=== PATIENT | female | born 1995 | race Caucasian/White ===

== ENCOUNTER 2020-02-23 06:44 | Inpatient (IN) | payer BC ==
[2020-02-23] MEDS ORDERED: Tranexamic Acid 1,000 MG in Sodium Chloride 0.9% 100 ML IV PRN (08:44)
[2020-02-23] MEDS ORDERED: Methylergonovine 0.2 MG/1 ML Amp IM PRN (08:44)
[2020-02-23] MEDS ORDERED: Sodium Chloride 0.9% 2.5 ML Syringe FLUSH PRN (08:44)
[2020-02-23] MEDS ORDERED: Nalbuphine 10 MG/1 ML Vial IVPUSH PRN (08:44)
[2020-02-23] MEDS ORDERED: Carboprost Tromethamine 250 MCG/1 ML Amp IM PRN (08:44)
[2020-02-23] MEDS ORDERED: Water For Irrigation,Sterile 1,000 ML Container IRR PRN (08:44)
[2020-02-23] MEDS ORDERED: Misoprostol 200 MCG Tab PO PRN (08:44)
[2020-02-23] MEDS ORDERED: Sodium Chloride 0.9% 10 ML Syringe FLUSH PRN (08:44)
[2020-02-23] MEDS ORDERED: Butorphanol 1 MG/ML SDV IVPUSH PRN (08:44)
[2020-02-23] MEDS ORDERED: Lidocaine 1% 50 ML MDV INJECT PRN (08:44)
[2020-02-23] MEDS ORDERED: Sodium Chloride 0.9% 10 ML SDV IV PRN (08:44)
[2020-02-23] MEDS ORDERED: Oxytocin/0.9 % Sodium Chloride 30 UNIT/500 ML BAG IV SCH (08:45)
[2020-02-23] MEDS: Lactated Ringers 1,000 ML IV SCH ×3 (09:08→12:00)
[2020-02-23] MEDS ORDERED: fentaNYL 100 MCG/2 ML SDV ONE ×2 (09:21→11:36)
[2020-02-23] MEDS ORDERED: Ropivacaine HCl/PF 100 ML ONE (09:21)
[2020-02-23] MEDS ORDERED: Oxytocin/0.9 % Sodium Chloride 30 UNIT/500 ML BAG ONE (09:26)
--- NOTE | 2020-02-23 09:55 | PCM.PREANE ---
Preanesthetic Assessment - Anesthesia/Transfusion/Family Hx Anesthesia History: Prior Anesthesia Without Reaction Family History of Anesthesia Reaction: No - Physical Assessment NPO Status Date: 02/23/20 NPO Status Time: 06:00 Height: 1.78 m Weight: 145.15 kg ASA Class: 2 - Lab Values: Laboratory Last Values WBC 14.36 K/uL (4.0-11.0) H 02/23/20 09:00 RBC 4.25 M/uL (4.30-5.90) L 02/23/20 09:00 Hgb 13.5 g/dL (12.0-16.0) 02/23/20 09:00 Hct 40.4 % (36.0-46.0) 02/23/20 09:00 MCV 95.1 fL (80.0-98.0) 02/23/20 09:00 MCH 31.8 pg (27.0-32.0) 02/23/20 09:00 MCHC 33.4 g/dL (31.0-37.0) 02/23/20 09:00 RDW Std Deviation 47.2 fl (28.0-62.0) 02/23/20 09:00 RDW Coeff of Altagracia 14 % (11.0-15.0) 02/23/20 09:00 Plt Count 245 K/uL (150-400) 02/23/20 09:00 MPV 10.10 fL (7.40-12.00) 02/23/20 09:00 Nucleated RBC % 0.0 /100WBC 02/23/20 09:00 Nucleated RBCs # 0 K/uL 02/23/20 09:00 - Allergies Allergies/Adverse Reactions: Allergies Allergy/AdvReac Type Severity Reaction Status Date / Time Sulfa (Sulfonamide Allergy Stomach Verified 02/23/20 07:25 Antibiotics) Upset - Acknowledgements Anesthesia Type Planned: Epidural Pt an Appropriate Candidate for the Planned Anesthesia: Yes Alternatives and Risks of Anesthesia Discussed w Pt/Guardian: Yes Pt/Guardian Understands and Agrees with Anesthesia Plan: Yes PreAnesthesia Questionnaire - HOME MEDS Home Medications: Home Meds Acetaminophen [Tylenol Extra Strength] 500 mg PO Q4H PRN #1 tab 11/27/14 [Rx] Ibuprofen [Motrin] 400 mg PO Q4H PRN #1 tablet 11/27/14 [Rx] Lanolin [Lansinoh HPA] 40 gm TOP ASDIRECTED PRN #1 crm 11/27/14 [Rx] - CURRENT (IN HOUSE) MEDS Current Meds: Current Medications Butorphanol Tartrate (Stadol) 1 mg IVPUSH Q1H PRN PRN Reason: Pain Carboprost Tromethamine (Hemabate Ds) 250 mcg IM ASDIRECTED PRN PRN Reason: Post Hemorrhage Lactated Ringer's (Ringers, Lactated) 1,000 mls @ 150 mls/hr IV ASDIRECTED [facility] Last Admin: 02/23/20 09:51 Dose: 999 mls/hr Oxytocin/Sodium Chloride (Oxytocin 30 Unit/500 Ml-Ns) 30 unit in 500 mls @ 500 mls/hr IV TITRATE [facility] Tranexamic Acid 1,000 mg/ (Sodium Chloride) 110 mls @ 660 mls/hr IV ONETIME PRN PRN Reason: Bleeding Lidocaine HCl (Xylocaine 1%) 50 ml INJECT ONETIME PRN PRN Reason: Laceration repair Methylergonovine Maleate (Methergine) 0.2 mg IM ASDIRECTED PRN PRN Reason: Post Hemorrhage Misoprostol (Cytotec) 200 mcg PO ONETIME PRN PRN Reason: Post Hemorrhage Nalbuphine HCl (Nubain) 10 mg IVPUSH Q1H PRN PRN Reason: Pain (severe 7-10) Sodium Chloride (Saline Flush) 10 ml FLUSH ASDIRECTED PRN PRN Reason: Keep Vein Open Sodium Chloride (Saline Flush) 2.5 ml FLUSH ASDIRECTED PRN PRN Reason: Keep Vein Open Sodium Chloride (Normal Saline) 10 ml IV ASDIRECTED PRN PRN Reason: IV Use Sterile Water (Sterile Water For Irrigation) 1,000 ml IRR ASDIRECTED PRN PRN Reason: delivery Discontinued Medications Fentanyl (Sublimaze) Confirm Administered Dose 100 mcg .ROUTE .STK-MED ONE Stop: 02/23/20 09:22 Ropivacaine (Naropin 0.2%) Confirm Administered Dose 100 mls @ as directed .ROUTE .STK-MED ONE Stop: 02/23/20 09:22 Oxytocin/Sodium Chloride (Oxytocin 30 Unit/500 Ml-Ns) Confirm Administered Dose 30 unit in 500 mls @ as directed .ROUTE .STK-MED ONE Stop: 02/23/20 09:27
--- NOTE | 2020-02-23 09:58 | PCM.PRNOTE ---
- Free Text/Narrative Note: Anes NOte Patietn requests epidural for L&D. Sittin position. Level L3-L4 midline approach. Sterile technique. Chloraprep scrub to lumbar area. Sterile fenestrated drape applied. Epidural space achieved second attempt using TAYO technique. TAYO at 8 cm. Cath threaded 6 cm with ease. Cath secured at skin at 14 cm. using sterile clear adhesive dressing. Test 0940 3 cc 1.5% lido with epi negative. 0944 Load 10 cc 0.2% ropiv with 1 mcg cc fentanyl in slow divided doses. 0940 Pump started wtih 90 cc same solution. Rate is 8 cc hr with 6 cc q 20 min prn bolus. Janki well. Time with patient [id number] Zach Chatman CRNA
[2020-02-23] MEDS ORDERED: Lidocaine 1% 50 ML MDV ONE ×2 (10:26→14:08)
[2020-02-23] MEDS ORDERED: Bupivacaine 0.5% 10 ML SDV ONE ×2 (11:36→11:38)
--- NOTE | 2020-02-23 12:03 | PCM.PRNOTE ---
- Free Text/Narrative Note: 1030 Anes Note Patient reports incomplete analgesia with existing epidural. Epidural cath removed easily and complete. A new epidural was placed under sterile technique at Level L2-L3 midline approach. TAYO at 6 cm. Cath threaded 5 cm with ease, and secured at 12 cm at skin using sterile clear adhesive dressing. 1035 Test 3 cc 1.5% lido wtih ep negative. 1038 load 10 cc 0.2% ropiv with 100 mcg fentanyl added to bolus was injected in slow divided doses. Patient reports excellent improvement in discomfor. Pump restarted at prior rate. Zach Chatman CRNA
[2020-02-23] MEDS ORDERED: Lanolin 100% Cream 7 GM Tube TOP PRN (16:58)
[2020-02-23] MEDS ORDERED: Ibuprofen 400 MG Tab PO PRN (16:58)
[2020-02-23] MEDS ORDERED: Benzocaine/Menthol 20%-0.5% Spray 78 GM Cannister TOP PRN (16:58)
[2020-02-23] MEDS ORDERED: Docusate Sodium 100 MG Cap PO PRN (16:58)
[2020-02-23] MEDS ORDERED: Bisacodyl 10 MG Supp RECTAL PRN (16:58)
[2020-02-23] MEDS ORDERED: Witch Hazel Medicated Pads 40/Jar TOP PRN (16:58)
[2020-02-23] MEDS ORDERED: oxyCODONE 5 MG Tab PO PRN (16:58)
[2020-02-23] MEDS ORDERED: Acetaminophen 500 MG Tab PO PRN ×2 (16:58)
--- NOTE | 2020-02-23 17:10 | PCM.DEL ---
L & D Note - General Info Date of Service: 02/23/20 - Delivery Note Labor: Spontaneous, Augmented by ARM Delivery Outcome: Livebirth Infant Delivery Method: Spontaneous Vaginal Delivery-Single Presentation: Left Occiput Anterior (ROZINA) Nuchal Cord: None Anesthesia Type: Epidural Local Anesthetic Volume: 1cc Episiotomy Type: None Laceration: 1st Degree Suture type: Other (monocryl) Suture size: 2-0 Placenta: Spontaneous Cord: 3 Vessels Estimated Blood Loss: 200 Resuscitation Needed: No Score 1 min: 8 Score 5 min: 9 Delivery Comments (Free Text/Narrative):: Live Female delivered at 1543 , 8/9 weight 4610g Cord blood and cord tissue obtained and given to parent to be shipped to [facility] - General Info Date of Service: 02/23/20 - Patient Data Weight - Most Recent: 145.15 kg Lab Results Last 24 Hours: Laboratory Results - last 24 hr 02/23/20 02/23/20 Range/Units 09:00 09:57 WBC 14.36 H (4.0-11.0) K/uL RBC 4.25 L (4.30-5.90) M/uL Hgb 13.5 (12.0-16.0) g/dL Hct 40.4 (36.0-46.0) % MCV 95.1 (80.0-98.0) fL MCH 31.8 (27.0-32.0) pg MCHC 33.4 (31.0-37.0) g/dL RDW Std Deviation 47.2 (28.0-62.0) fl RDW Coeff of Altagracia 14 (11.0-15.0) % Plt Count 245 (150-400) K/uL MPV 10.10 (7.40-12.00) fL Nucleated RBC % 0.0 /100WBC Nucleated RBCs # 0 K/uL Blood Type A POSITIVE Antibody Screen NEGATIVE Med Orders - Current: Current Medications Acetaminophen (Tylenol Extra Strength) 500 mg PO Q4H PRN PRN Reason: Pain Acetaminophen (Tylenol Extra Strength) 1,000 mg PO Q4H PRN PRN Reason: Pain Benzocaine/Menthol (Dermoplast Pain Relief 20%-0.5% [place]) 78 gm TOP ASDIRECTED PRN PRN Reason: Perineal Comfort Measure Bisacodyl (Dulcolax) 10 mg RECTAL ONETIME PRN PRN Reason: Constipation Butorphanol Tartrate (Stadol) 1 mg IVPUSH Q1H PRN PRN Reason: Pain Last Admin: 02/23/20 12:02 Dose: 1 mg Carboprost Tromethamine (Hemabate Ds) 250 mcg IM ASDIRECTED PRN PRN Reason: Post Hemorrhage Docusate Sodium (Colace) 100 mg PO BID PRN PRN Reason: Constipation Emollient Ointment (Lansinoh Hpa) 0 gm TOP ASDIRECTED PRN PRN Reason: Sore Nipples Lactated Ringer's (Ringers, Lactated) 1,000 mls @ 150 mls/hr IV ASDIRECTED [facility] Last Admin: 02/23/20 12:00 Dose: 150 mls/hr Oxytocin/Sodium Chloride (Oxytocin 30 Unit/500 Ml-Ns) 30 unit in 500 mls @ 500 mls/hr IV TITRATE [facility] Last Admin: 02/23/20 15:46 Dose: 999 mls/hr Tranexamic Acid 1,000 mg/ (Sodium Chloride) 110 mls @ 660 mls/hr IV ONETIME PRN PRN Reason: Bleeding Ibuprofen (Motrin) 400 mg PO Q4H PRN PRN Reason: Pain Ibuprofen (Motrin) 800 mg PO Q6H PRN PRN Reason: Pain Lidocaine HCl (Xylocaine 1%) 50 ml INJECT ONETIME PRN PRN Reason: Laceration repair Methylergonovine Maleate (Methergine) 0.2 mg IM ASDIRECTED PRN PRN Reason: Post Hemorrhage Misoprostol (Cytotec) 200 mcg PO ONETIME PRN PRN Reason: Post Hemorrhage Nalbuphine HCl (Nubain) 10 mg IVPUSH Q1H PRN PRN Reason: Pain (severe 7-10) Oxycodone HCl (Oxycodone) 5 mg PO Q2H PRN PRN Reason: Pain Sodium Chloride (Saline Flush) 10 ml FLUSH ASDIRECTED PRN PRN Reason: Keep Vein Open Sodium Chloride (Saline Flush) 2.5 ml FLUSH ASDIRECTED PRN PRN Reason: Keep Vein Open Sodium Chloride (Normal Saline) 10 ml IV ASDIRECTED PRN PRN Reason: IV Use Sterile Water (Sterile Water For Irrigation) 1,000 ml IRR ASDIRECTED PRN PRN Reason: delivery Mejia Rankin (Tucks) 1 pad TOP ASDIRECTED PRN PRN Reason: comfort care Discontinued Medications Bupivacaine HCl (Sensorcaine-Mpf 0.5%) Confirm Administered Dose 10 ml .ROUTE .STK-MED ONE Stop: 02/23/20 11:37 Bupivacaine HCl (Sensorcaine-Mpf 0.5%) Confirm Administered Dose 10 ml .ROUTE .STK-MED ONE Stop: 02/23/20 11:39 Fentanyl (Sublimaze) Confirm Administered Dose 100 mcg .ROUTE .STK-MED ONE Stop: 02/23/20 09:22 Fentanyl (Sublimaze) Confirm Administered Dose 100 mcg .ROUTE .STK-MED ONE Stop: 02/23/20 11:37 Ropivacaine (Naropin 0.2%) Confirm Administered Dose 100 mls @ as directed .ROUTE .STK-MED ONE Stop: 02/23/20 09:22 Oxytocin/Sodium Chloride (Oxytocin 30 Unit/500 Ml-Ns) Confirm Administered Dose 30 unit in 500 mls @ as directed .ROUTE .STK-MED ONE Stop: 02/23/20 09:27 Lidocaine HCl (Xylocaine 1%) Confirm Administered Dose 50 ml .ROUTE .STK-MED ONE Stop: 02/23/20 10:27 Lidocaine HCl (Xylocaine 1%) Confirm Administered Dose 50 ml .ROUTE .STK-MED ONE Stop: 02/23/20 14:09 - Problem List & Annotations (1) Vaginal delivery SNOMED Code(s): 599909046 Code(s): O80 - ENCOUNTER FOR FULL-TERM UNCOMPLICATED DELIVERY Status: Acute Current Visit: No - Problem List Review Problem List Initiated/Reviewed/Updated: Yes - My Orders Last 24 Hours: My Active Orders 02/23/20 08:35 Admission Status [Patient Status] [ADT] Routine 02/23/20 08:44 Butorphanol [Stadol] 1 mg IVPUSH Q1H PRN Carboprost Tromethamine [Hemabate DS] 250 mcg IM ASDIRECTED PRN Lidocaine 1% [Xylocaine 1%] 50 ml INJECT ONETIME PRN Methylergonovine [Methergine] 0.2 mg IM ASDIRECTED PRN Nalbuphine [Nubain] 10 mg IVPUSH Q1H PRN Sodium Chloride 0.9% [Normal Saline] 10 ml IV ASDIRECTED PRN Sodium Chloride 0.9% [Saline Flush] 10 ml FLUSH ASDIRECTED PRN Sodium Chloride 0.9% [Saline Flush] 2.5 ml FLUSH ASDIRECTED PRN Tranexamic Acid [Cyklokapron] 1,000 mg Sodium Chloride 0.9% [Normal Saline] 100 ml IV ONETIME Water For Irrigation,Sterile [Sterile Water for Irrigation] 1,000 ml IRR ASDIRECTED PRN miSOPROStoL [Cytotec] 200 mcg PO ONETIME PRN 02/23/20 08:45 Heart Tones [RC] CONTINUOUS Vaginal Exam [RC] PRN Lactated Ringers [Ringers, Lactated] 1,000 ml IV ASDIRECTED Oxytocin/0.9 % Sodium Chloride [Oxytocin 30 Unit/500 ML-NS] 30 unit in 500 ml IV TITRATE Peripheral IV Insertion Adult [OM.PC] Routine 02/23/20 09:00 RPR (SYPHILIS SERO) W/ RFLX [REF] Routine 02/23/20 16:58 Acetaminophen [Tylenol Extra Strength] 1,000 mg PO Q4H PRN Acetaminophen [Tylenol Extra Strength] 500 mg PO Q4H PRN Benzocaine/Menthol [Dermoplast Pain Relief 20%-0.5% [place]] 78 gm TOP ASDIRECTED PRN Docusate Sodium [Colace] 100 mg PO BID PRN Ibuprofen [Motrin] 400 mg PO Q4H PRN Ibuprofen [Motrin] 800 mg PO Q6H PRN Lanolin [Lansinoh HPA] See Dose Instructions TOP ASDIRECTED PRN bisacodyL [Dulcolax] 10 mg RECTAL ONETIME PRN oxyCODONE 5 mg PO Q2H PRN witch Precious [Tucks] 1 pad TOP ASDIRECTED PRN 02/23/20 16:59 Patient Status [ADT] Routine May Shower [RC] ASDIRECTED Up ad Bnig [RC] ASDIRECTED Vital Signs [RC] PER UNIT ROUTINE Assess Lochia [WOMSER] Per Unit Routine Assess Uterine Involution [WOMSER] Per Unit Routine Peripheral IV Discontinue [OM.PC] Routine 02/24/20 05:11 HEMOGLOBIN/HEMATOCRIT,HH [HEME] Timed
--- NOTE | 2020-02-23 20:10 | OR ---
SURGEON: SAVANA VAZQUEZ DATE OF PROCEDURE: 02/23/2020 PREOPERATIVE DIAGNOSES: A 25-year-old, G2, P 1-0-0-1, at 40 weeks 4 days, admitted in early labor, GBS negative, history of herpes simplex virus 2. POSTOPERATIVE DIAGNOSES: A 25-year-old, G2, P 1-0-0-1, at 40 weeks 4 days, admitted in early labor, GBS negative, history of herpes simplex virus 2. PROCEDURE: Normal some spontaneous vaginal delivery, repair of right first-degree vaginal laceration. ESTIMATED BLOOD LOSS: 200. ANESTHESIA: Epidural. NOTES AND FINDINGS: Live female delivered at 1543. score of 8 and 9. Weight is 4610 g. The patient desired cord blood and cord tissue collection, which was done. BRIEF HISTORY: The patient is a 25-year-old, G2, P1, low-risk patient who came in in early labor. She was about 3 to 4 cm dilated. She made change to 6. At this point, she was ruptured. When she ruptured, there was blood-tinged fluid, which was noted, and she was requesting epidural. She got the epidural placed about three times because of an inadequate pain control. The final epidural was helpful with the pain. After the patient had been ruptured, in 4 hours she was noted to be complete, and she was encouraged to push. DESCRIPTION OF PROCEDURE: With good pushing effort, she delivered the head subsequently by the anterior and posterior shoulder.The body of the baby was delivered. Infant was placed on maternal abdomen. The cord was clamped close to the umbilicus of the baby and the cord blood gases were obtained. The cord blood was obtained as per instruction from the [facility] cord blood kit and the placenta was then delivered via controlled cord traction. Perineum was inspected, noted to have a first-degree laceration which was repaired and uterine massage was done and hemostasis was noted. About 8 cm of cord tissue was then also obtained and sent for collection. The patient tolerated the procedure well. All instrument and pad counts were correct x2. KEYANA / NAMRATA /[id number]
[2020-02-23] MEDS: Ibuprofen 800 MG Tab PO PRN (21:58)
[2020-02-24] MEDS: Ibuprofen 800 MG Tab PO PRN ×3 (04:23→18:48)
--- NOTE | 2020-02-24 08:03 | PCM48HPAN ---
Post Anesthesia Note - EVALUATION WITHIN 48HRS OF ANESTHETIC Vital Signs in Normal Range: Yes Patient Participated in Evaluation: Yes Respiratory Function Stable: Yes Airway Patent: Yes Cardiovascular Function Stable: Yes Hydration Status Stable: Yes Pain Control Satisfactory: Yes Nausea and Vomiting Control Satisfactory: Yes Mental Status Recovered: Yes Vital Signs: Last Vital Signs Temp 36.5 C 02/24/20 04:15 Pulse 72 02/24/20 03:55 Resp 18 02/24/20 03:55 BP 135/63 02/24/20 03:55 Pulse Ox 96 02/24/20 03:55
--- NOTE | 2020-02-24 11:03 | PCM.PNPP ---
- General Info Date of Service: 02/24/20 Subjective Update: 25 yo P2 s/p , denies any complains today ambulating , , Normal lochia Functional Status: Reports: Pain Controlled, Tolerating Diet, Ambulating, Urinating, New Symptoms - Review of Systems General: Reports: No Symptoms HEENT: Reports: No Symptoms Pulmonary: Reports: No Symptoms Cardiovascular: Reports: No Symptoms Gastrointestinal: Reports: No Symptoms Genitourinary: Reports: No Symptoms Musculoskeletal: Reports: No Symptoms Skin: Reports: No Symptoms Neurological: Reports: No Symptoms Psychiatric: Reports: No Symptoms - General Info Date of Service: 02/24/20 - Patient Data Vital Signs - Most Recent: Last Vital Signs Temp 36.6 C 02/24/20 08:00 Pulse 91 02/24/20 08:00 Resp 16 02/24/20 08:00 BP 145/67 H 02/24/20 08:00 Pulse Ox 96 02/24/20 08:00 Weight - Most Recent: 145.15 kg Lab Results - Last 24 Hours: Laboratory Results - last 24 hr 02/24/20 Range/Units 05:00 Hgb 11.7 L (12.0-16.0) g/dL Hct 35.9 L (36.0-46.0) % Med Orders - Current: Current Medications Acetaminophen (Tylenol Extra Strength) 500 mg PO Q4H PRN PRN Reason: Pain Acetaminophen (Tylenol Extra Strength) 1,000 mg PO Q4H PRN PRN Reason: Pain Benzocaine/Menthol (Dermoplast Pain Relief 20%-0.5% [place]) 78 gm TOP ASDIRECTED PRN PRN Reason: Perineal Comfort Measure Bisacodyl (Dulcolax) 10 mg RECTAL ONETIME PRN PRN Reason: Constipation Butorphanol Tartrate (Stadol) 1 mg IVPUSH Q1H PRN PRN Reason: Pain Last Admin: 02/23/20 12:02 Dose: 1 mg Carboprost Tromethamine (Hemabate Ds) 250 mcg IM ASDIRECTED PRN PRN Reason: Post Hemorrhage Docusate Sodium (Colace) 100 mg PO BID PRN PRN Reason: Constipation Emollient Ointment (Lansinoh Hpa) 0 gm TOP ASDIRECTED PRN PRN Reason: Sore Nipples Lactated Ringer's (Ringers, Lactated) 1,000 mls @ 150 mls/hr IV ASDIRECTED [facility] Last Admin: 02/23/20 12:00 Dose: 150 mls/hr Oxytocin/Sodium Chloride (Oxytocin 30 Unit/500 Ml-Ns) 30 unit in 500 mls @ 500 mls/hr IV TITRATE [facility] Last Admin: 02/23/20 15:46 Dose: 999 mls/hr Tranexamic Acid 1,000 mg/ (Sodium Chloride) 110 mls @ 660 mls/hr IV ONETIME PRN PRN Reason: Bleeding Ibuprofen (Motrin) 400 mg PO Q4H PRN PRN Reason: Pain Ibuprofen (Motrin) 800 mg PO Q6H PRN PRN Reason: Pain Last Admin: 02/24/20 10:46 Dose: 800 mg Lidocaine HCl (Xylocaine 1%) 50 ml INJECT ONETIME PRN PRN Reason: Laceration repair Methylergonovine Maleate (Methergine) 0.2 mg IM ASDIRECTED PRN PRN Reason: Post Hemorrhage Misoprostol (Cytotec) 200 mcg PO ONETIME PRN PRN Reason: Post Hemorrhage Nalbuphine HCl (Nubain) 10 mg IVPUSH Q1H PRN PRN Reason: Pain (severe 7-10) Oxycodone HCl (Oxycodone) 5 mg PO Q2H PRN PRN Reason: Pain Sodium Chloride (Saline Flush) 10 ml FLUSH ASDIRECTED PRN PRN Reason: Keep Vein Open Sodium Chloride (Saline Flush) 2.5 ml FLUSH ASDIRECTED PRN PRN Reason: Keep Vein Open Sodium Chloride (Normal Saline) 10 ml IV ASDIRECTED PRN PRN Reason: IV Use Sterile Water (Sterile Water For Irrigation) 1,000 ml IRR ASDIRECTED PRN PRN Reason: delivery Witch Massiel (Tucks) 1 pad TOP ASDIRECTED PRN PRN Reason: comfort care Discontinued Medications Bupivacaine HCl (Sensorcaine-Mpf 0.5%) Confirm Administered Dose 10 ml .ROUTE .STK-MED ONE Stop: 02/23/20 11:37 Bupivacaine HCl (Sensorcaine-Mpf 0.5%) Confirm Administered Dose 10 ml .ROUTE .STK-MED ONE Stop: 02/23/20 11:39 Fentanyl (Sublimaze) Confirm Administered Dose 100 mcg .ROUTE .STK-MED ONE Stop: 02/23/20 09:22 Fentanyl (Sublimaze) Confirm Administered Dose 100 mcg .ROUTE .STK-MED ONE Stop: 02/23/20 11:37 Ropivacaine (Naropin 0.2%) Confirm Administered Dose 100 mls @ as directed .ROUTE .STK-MED ONE Stop: 02/23/20 09:22 Oxytocin/Sodium Chloride (Oxytocin 30 Unit/500 Ml-Ns) Confirm Administered Dose 30 unit in 500 mls @ as directed .ROUTE .STK-MED ONE Stop: 02/23/20 09:27 Lidocaine HCl (Xylocaine 1%) Confirm Administered Dose 50 ml .ROUTE .STK-MED ONE Stop: 02/23/20 10:27 Lidocaine HCl (Xylocaine 1%) Confirm Administered Dose 50 ml .ROUTE .STK-MED ONE Stop: 02/23/20 14:09 - Infant Interaction Support Person: Significant Other - Recovery Exam Fundal Tone: Firm Fundal Level: 1 Fingerbreadths Below Umbilicus Fundal Placement: Midline Lochia Amount: Scant, Small Lochia Color: Rubra/Red Perineum Description: Intact, Minimal Bruising/Swelling Bladder Status: Voiding Urinary Elimination: Voided - Exam General: Alert HEENT: Pupils Equal Neck: Supple Lungs: Clear to Auscultation, Normal Respiratory Effort Cardiovascular: Regular Rate, Regular Rhythm Extremities: Normal Inspection Neurological: No New Focal Deficit Psy/Mental Status: Alert - Problem List & Annotations (1) Vaginal delivery SNOMED Code(s): 381556708 Code(s): O80 - ENCOUNTER FOR FULL-TERM UNCOMPLICATED DELIVERY Status: Acute Current Visit: No - Problem List Review Problem List Initiated/Reviewed/Updated: Yes - My Orders Last 24 Hours: My Active Orders 02/23/20 16:58 Acetaminophen [Tylenol Extra Strength] 1,000 mg PO Q4H PRN Acetaminophen [Tylenol Extra Strength] 500 mg PO Q4H PRN Benzocaine/Menthol [Dermoplast Pain Relief 20%-0.5% [place]] 78 gm TOP ASDIRECTED PRN Docusate Sodium [Colace] 100 mg PO BID PRN Ibuprofen [Motrin] 400 mg PO Q4H PRN Ibuprofen [Motrin] 800 mg PO Q6H PRN Lanolin [Lansinoh HPA] See Dose Instructions TOP ASDIRECTED PRN bisacodyL [Dulcolax] 10 mg RECTAL ONETIME PRN oxyCODONE 5 mg PO Q2H PRN jewel Lang [Tucks] 1 pad TOP ASDIRECTED PRN 02/23/20 16:59 Patient Status [ADT] Routine May Shower [RC] ASDIRECTED Up ad Bing [RC] ASDIRECTED Assess Lochia [WOMSER] Per Unit Routine Assess Uterine Involution [WOMSER] Per Unit Routine Peripheral IV Discontinue [OM.PC] Routine 02/23/20 Dinner Regular Diet [DIET] - Assessment Assessment:: 25yo P2 s/p , , normal lochia - Plan Plan:: Doing well s/p Discharge home today
[2020-02-24 20:40] VITALS: BP 117/62; PULSE 61
== END 2020-02-24 23:05 | disposition home or self-care (01) | DRG 560 ==
LOC: MW.OBCHECK 06:44 → MW.OB 06:44 → OBSVTOIN 15:43 → INTOOBSV 15:43 → MW.OBCHECK 15:43 → MW.OB 19:00
PROVIDERS: ADMIT Obstetrics & Gynecology; ATTEND Obstetrics & Gynecology
PROC: 10E0XZZ Delivery of Products of Conception, External Approach (ICD-10-PCS; principal; 2020-02-23)
PROC: 0HQ9XZZ Repair Perineum Skin, External Approach (ICD-10-PCS; 2020-02-23)
PROC: 10907ZC Drainage of Amniotic Fluid, Therapeutic from Products of Conception, Via Natural or Artificial Opening (ICD-10-PCS; 2020-02-23)
PROC: 3E0R3BZ Introduction of Anesthetic Agent into Spinal Canal, Percutaneous Approach (ICD-10-PCS; 2020-02-23)
PROC: 4A1HXCZ Monitoring of Products of Conception, Cardiac Rate, External Approach (ICD-10-PCS; 2020-02-23)
DX: O48.0 Post-term pregnancy (principal); Z3A.40 40 weeks gestation of pregnancy; Z37.0 Single live birth; O70.0 First degree perineal laceration during delivery; Z79.899 Other long term (current) drug therapy; Z88.2 Allergy status to sulfonamides
CPT/HCPCS: 01967; 36415; 51702; 59025; 59409; 85014; 85018; 85027; 86592; 86593; 86850; 86900; 86901; A9270-GY; J0595; J2590; J7120

== ENCOUNTER 2022-08-30 17:17 | Emergency (ER) | payer BC ==
[2022-08-30] MEDS ORDERED: Ketorolac 30 MG/ML SDV IVPUSH ONE (17:57)
[2022-08-30] MEDS ORDERED: Metoclopramide 10 MG/2 ML SDV IVPUSH ONE (17:57)
[2022-08-30] MEDS ORDERED: diphenhydrAMINE 50 MG/ML SDV IVPUSH ONE (17:57)
[2022-08-30] MEDS ORDERED: Sodium Chloride 0.9% 1,000 ML IV ONE (17:57)
[2022-08-30] MEDS ORDERED: Ondansetron 4 MG/2 ML SDV IVPUSH ONE (17:57)
[2022-08-30 19:10] LABS: CARBON DIOXIDE,CO2 26.3 mmol/L (21.0-32.0); POTASSIUM,K 3.8 mmol/L (3.5-5.1)
[2022-08-30 19:23] LABS: CORONAVIRUS COVID-19 NAA NEGATIVE (NEGATIVE); INFLUENZA A NAA NEGATIVE (NEGATIVE); INFLUENZA B NAA NEGATIVE (NEGATIVE)
[2022-08-30 20:19] VITALS: BP 120/71; PULSE 74
== END 2022-08-30 20:20 | disposition home or self-care (01) ==
LOC: MW.ED 17:17
DX: G44.209 Tension-type headache, unspecified, not intractable (principal); Z88.2 Allergy status to sulfonamides; Z20.822 Contact with and (suspected) exposure to COVID-19
CPT/HCPCS: 0240U; 36415; 70450; 80053; 85025; 96361; 96374; 96375; 99284; J1885; J2405; J7030